=== PATIENT | male | born 1955 | race Caucasian/White ===

== ENCOUNTER 2016-12-18 05:24 | Day surgery (SDC) | payer OTHER ==
[~2016-12-18] VITALS: Ht 167.6 cm; Wt 69.8 kg
[~2016-12-18 05:24] MED LIST: AMOXICILLIN500 MG PO; MULTIVITAMIN1 EAC2 PO
[2016-12-18] MEDS ORDERED: TYLENOL REGULA325 MG PO (05:52)
[2016-12-18 05:53] VITALS: BP 118/79
[2016-12-18] MEDS ORDERED: NORCO 5/3251 TABLET PO (08:23)
[2016-12-18 09:13] VITALS: BP 115/75
[2016-12-18 10:15] VITALS: BP 126/62
[2016-12-18 11:30] VITALS: BP 128/74
== END 2016-12-18 11:10 | disposition home or self-care (01) ==
LOC: SDC 05:24
PROC: 0YU60JZ Supplement Left Inguinal Region with Synthetic Substitute, Open Approach (ICD-10-PCS; principal; 2016-12-18)
DX: K40.90 Unilateral inguinal hernia, without obstruction or gangrene, not specified as recurrent (principal); M19.90 Unspecified osteoarthritis, unspecified site; Z82.49 Family history of ischemic heart disease and other diseases of the circulatory system; Z80.42 Family history of malignant neoplasm of prostate; Z82.3 Family history of stroke; Z88.2 Allergy status to sulfonamides
CPT/HCPCS: C1781; J0131; J0690; J1100; J1885; J2250; J2405; J2710; J3010